=== PATIENT | male | born 1935 | race Caucasian/White ===

== ENCOUNTER 2021-03-23 12:40 | Outpatient (CLI) | payer MEDICARE, BC ==
[2021-03-23 13:33] LABS: #Basophils 0.1 10x3/uL (0.0-0.2); #Eosinphils 0.2 10x3/uL (0.0-0.5); #Monocytes 0.6 10x3/uL (0.0-1.1); #Neutrophils 2.6 10x3/uL (1.5-8.4); %Basophils 0.9 % (0.0-2.0); %Eosinophils 2.8 % (0.0-6.0); %Lymphocytes 40.2 % (18.0-47.0); %Monocytes 10.5 % (0.0-10.0); %Neutrophils 45.4 % (40.0-75.0); Hemoglobin 13.6 g/dL (13.5-17.5); Mean Corpuscular HGB CONC 32.9 g/dL (32.0-36.0); Mean Corpuscular Hemoglobin 30.6 pg (27.0-33.0); Mean Corpuscular Volume 93.2 fl (81.2-95.1); Mean Platelet Volume 10.8 fl (7.4-10.4); Platelet Count 255 10x3/uL (150-450); RBC Distribution Width 13.3 % (11.5-14.5); Red Blood Cell (RBC) Count 4.44 10x6/uL (4.32-5.72); White Blood Cell (WBC) Count 5.7 10x3/uL (3.5-10.5)
[2021-03-23 13:39] LABS: PTT 35.7 sec (22.0-33.0); Prothrombin Time 10.9 sec (9.5-12.1)
[2021-03-23 13:44] LABS: ALT (SGPT) 25 U/L (8-55); AST (SGOT) 26 U/L (5-34); Albumin 4.4 g/dL (3.4-4.8); Alkaline Phosphatase 85 U/L (40-110); Anion Gap 15 mmol/L (10-20); BUN (Urea Nitrogen) 23 mg/dL (8.4-25.7); Bilirubin, Total 0.7 mg/dL (0.2-1.2); Calc. Creatinine Clearance 0 mL/min (70-130); Calcium 9.9 mg/dL (7.8-10.44); Carbon Dioxide 27 mmol/L (23-31); Chloride 103 mmol/L (98-107); Globulin 3.3 g/dL (2.4-3.5); Glucose 104 mg/dL (83-110); Potassium 4.1 mmol/L (3.5-5.1); Protein, Total 7.7 g/dL (5.8-8.1); Sodium 141 mmol/L (136-145)
[2021-03-23 21:45] LABS: SARS-CoV-2 PCR by NAA Not Detected (NotDetected)
== END 2021-03-23 12:41 | disposition home or self-care (01) ==
LOC: LABBT 12:40
PROVIDERS: ATTEND Surgery
DX: Z01.818 Encounter for other preprocedural examination (principal); K40.90 Unilateral inguinal hernia, without obstruction or gangrene, not specified as recurrent; Z20.822 Contact with and (suspected) exposure to COVID-19
CPT/HCPCS: 80053; 85025; 85610; 85730; U0003; U0005

== ENCOUNTER 2021-03-28 05:27 | Day surgery (SDC) | payer MEDICARE, BC ==
[2021-03-26 10:19] VITALS: BMI 26.2
[2021-03-28] MEDS ORDERED: ADVATE IVPB SCH (06:15)
[2021-03-28] MEDS ORDERED: Fentanyl 250 MCG/5 ML VIAL ONE (07:00)
[2021-03-28] MEDS ORDERED: Bupivacaine 0.25% HCL 30 ML VIAL ONE (07:39)
[2021-03-28] MEDS ORDERED: Xylocaine 1% w/ Epi 1:100K 10 ML VIAL ONE (07:39)
[2021-03-28] MEDS ORDERED: Sodium Chloride 0.9% 100 ML ONE (07:46)
[2021-03-28] MEDS ORDERED: CEFAZOLIN 1 GM VIAL ONE (07:46)
[2021-03-28] MEDS ORDERED: Ondansetron PF 4 MG/2 ML Vial ONE (07:59)
[2021-03-28] MEDS ORDERED: Dexamethasone 20 MG/5 ML VIAL ONE (07:59)
[2021-03-28] MEDS ORDERED: PROPOFOL 200 MG/20 ML VIAL ONE (07:59)
[2021-03-28] MEDS ORDERED: PHENYLEPHRINE-NS 100 MCG/ML 10 ML SYRINGE ONE (07:59)
[2021-03-28] MEDS ORDERED: Lidocaine 1% PF 5 ML VIAL ONE (07:59)
[2021-03-28] MEDS ORDERED: HYDROcodone/Acetaminophen 5/325 mg Tablet ONE (10:01)
== END 2021-03-28 11:17 | disposition home or self-care (01) ==
LOC: SDC 05:27
PROVIDERS: ATTEND Surgery
PROC: 0YU60JZ Supplement Left Inguinal Region with Synthetic Substitute, Open Approach (ICD-10-PCS; principal; 2021-03-28)
DX: K40.90 Unilateral inguinal hernia, without obstruction or gangrene, not specified as recurrent (principal); D66 Hereditary factor VIII deficiency; I10 Essential (primary) hypertension; E78.5 Hyperlipidemia, unspecified; Z79.82 Long term (current) use of aspirin; Z79.899 Other long term (current) drug therapy
CPT/HCPCS: C1781; J0690; J1100; J2405; J2704; J3010; J3490; S0020